=== PATIENT | female | born 1975 | race Caucasian/White ===

== ENCOUNTER 2018-06-09 11:11 | Outpatient (CLI) | payer OTHER | END 2018-06-09 11:12 | disposition home or self-care (01) | LOC: BICMAMMO 11:11 | PROVIDERS: ATTEND Allergy & Immunology | DX: Z12.31 Encounter for screening mammogram for malignant neoplasm of breast (principal); Z80.3 Family history of malignant neoplasm of breast | CPT/HCPCS: 77063; 77067 ==

== ENCOUNTER 2020-10-11 13:58 | Outpatient (CLI) | payer OTHER ==
[~2020-10-11 13:58] MED LIST: Magnevist 469MG/ML 20 ML VIAL ONE
== END 2020-10-11 13:59 | disposition home or self-care (01) ==
LOC: BICMRI 13:58
PROVIDERS: ATTEND Allergy & Immunology
DX: G50.0 Trigeminal neuralgia (principal)
CPT/HCPCS: 70553; A9579